=== PATIENT | male | born 1980 | race Caucasian/White ===

== ENCOUNTER 2017-03-30 21:46 | Emergency (ER) | payer OTHER ==
[~2017-03-30] VITALS: Ht 160 cm; Wt 63.6 kg
[2017-03-30] MEDS ORDERED: ERGO500014 PO (21:49)
[2017-03-30] MEDS ORDERED: LEVO50 PO (21:49)
[2017-03-30] MEDS ORDERED: CYAN500 PO (21:49)
[2017-03-30] MEDS ORDERED: IPRATROPIUM BROMIDE 0.5 MG/2.5 ML NEB SOLUTION NEB ONE (22:00)
[2017-03-30] MEDS ORDERED: ALBUTEROL SULFATE 5 MG/ML 20 ML NEB SOLN [BULK] NEB ONE (22:00)
[2017-03-30] MEDS ORDERED: 0.9% SODIUM CHLORIDE 5 ML NEB SOLUTION NEB ONE (22:06)
[2017-03-30] MEDS ORDERED: ALBUTEROL SULFATE HFA 90 MCG/PUFF 8 GM INHALER IH ONE (23:45)
[2017-03-31 00:05] VITALS: BP 109/75
== END 2017-03-31 00:18 | disposition home or self-care (01) ==
LOC: EMS 21:47
DX: J45.901 Unspecified asthma with (acute) exacerbation (principal); E03.9 Hypothyroidism, unspecified
CPT/HCPCS: 71020; 94644; 99285; J7611; J3535